=== PATIENT | female | born 1980 | race Asian ===

== ENCOUNTER 2017-02-10 11:28 | Emergency (ER) | payer BC, OTHER ==
[~2017-02-10] VITALS: Ht 167.6 cm; Wt 84.1 kg
[2017-02-10] MEDS ORDERED: SODIUM CHLORIDE 0.9% 1,000 ML IV ONE (12:08)
[2017-02-10] MEDS ORDERED: HYDROmorphone 1 MG/ML, 1ML ONE (12:20)
[2017-02-10] MEDS ORDERED: ONDANSETRON 2MG/ML, 2ML ONE (12:20)
[2017-02-10] MEDS ORDERED: SODIUM CHLORIDE FLUSH 10ML SYR IVF ONE (12:30)
[2017-02-10] MEDS ORDERED: ONDANSETRON 2MG/ML, 2ML IVPush ONE (12:30)
[2017-02-10] MEDS ORDERED: HYDROmorphone 1 MG/ML, 1ML IVPush PRN (12:30)
[2017-02-10 12:39] VITALS: BP 128/83
[2017-02-10 12:59] LABS: HEMATOCRIT 45.2 % (34.6-47.8); HEMOGLOBIN 14.8 g/dL (11.7-16.4); WHITE BLOOD COUNT 9.2 x10^3/uL (3.4-10)
[2017-02-10 13:10] LABS: ASPARTATE AMINO TRANSFERASE 15 U/L (15-37); BLOOD UREA NITROGEN 9 mg/dL (7-18)
[2017-02-10] MEDS ORDERED: MAALOX/HYOSCYAMINE/LIDOCAINE 45 ML BTL ONE (13:44)
[2017-02-10] MEDS ORDERED: MAALOX/HYOSCYAMINE/LIDOCAINE 45 ML BTL PO ONE (14:00)
== END 2017-02-10 14:51 | disposition home or self-care (01) ==
LOC: ED 13:04
DX: K29.00 Acute gastritis without bleeding (principal)
CPT/HCPCS: 36415; 76700; 80053; 81003; 83690; 84703; 85025; 93005; 96374; 99285; J2405